=== PATIENT | female | born 1960 | race Caucasian/White ===

== ENCOUNTER → 2017-02-05 | Outpatient (CLI) | payer OTHER, MEDICAID ==
[~2017-02-05] MED LIST: ASPI-496 PO; DIPH50CA62 PO; HYDR50TA13 PO; LISI40TA PO; METO25TA35 PO; OXYC1TAB9 PO; SENN-25 PO
== END | disposition home or self-care (01) ==
LOC: CVU 09:56
PROVIDERS: ATTEND Surgery
DX: I65.23 Occlusion and stenosis of bilateral carotid arteries (principal)
CPT/HCPCS: 93880